=== PATIENT | female | born 1960 | race Caucasian/White ===

== ENCOUNTER 2019-03-22 15:56 | Emergency (ER) | payer MEDICARE ==
[2019-03-22] MEDS ORDERED: ASPIRIN 325 MG TABLET ONE (16:05)
[2019-03-22 16:35] LABS: BASOPHILS % (AUTO) 0.8 % (0.0-5.0); EOSINOPHILS % (AUTO) 0.4 % (0.0-8.0); HEMATOCRIT 43.8 % (36-48); LYMPHOCYTES % (AUTO) 12.7 % (21.0-51.0); MEAN CORPUSCULAR HEMOGLOBIN 30.8 pg (27.0-33.0); MEAN CORPUSCULAR HGB CONC 34.1 g/dL (32.0-36.0); MEAN CORPUSCULAR VOLUME 90.1 fL (79-99); MONOCYTES % (AUTO) 4.6 % (3.0-13.0); NEUTROPHILS % (AUTO) 81.5 % (40.0-77.0); PLATELET COUNT (AUTO) 198 K/uL (130-400); RED BLOOD CELL COUNT(AUTO) 4.86 MIL/uL (4.00-5.50); RED CELL DISTRIBUTION WIDTH 13.9 % (11.0-15.5)
[2019-03-22 16:44] LABS: CREATININE 0.8 mg/dL (0.5-1.5); POTASSIUM 3.3 mmol/L (3.5-5.1)
[2019-03-22 16:46] LABS: INR 0.94 (0.85-1.15); PROTHROMBIN TIME 9.9 SEC (9.6-11.6)
[2019-03-22 16:48] LABS: ALBUMIN 3.2 g/dL (3.5-5.0); BILIRUBIN,TOTAL 0.8 mg/dL (0.2-1.0); TOTAL PROTEIN, SERUM 7.5 g/dL (6.0-8.3)
[2019-03-22] MEDS ORDERED: ONDANSETRON HCL 4 MG/2 ML VIAL ONE ×2 (17:04→22:07)
[2019-03-22] MEDS ORDERED: KETOROLAC TROMETHAMINE 30MG/ML ONE (17:05)
[2019-03-22] MEDS ORDERED: SODIUM CHLORIDE 0.9% 1000ML 1,000 ML IV ONE ×2 (17:06→22:08)
[2019-03-22] MEDS ORDERED: FAMOTIDINE/PF 20 MG/2 ML VIAL IV ONE (17:06)
[2019-03-22] MEDS ORDERED: ZOSYN 3.375GM+NS 50ML 50 ML IV ONE (18:11)
[2019-03-22] MEDS ORDERED: FENTANYL CITRATE PF 50 MCG/1 ML 2ML VIAL ONE ×2 (19:38→22:07)
[2019-03-23] MEDS ORDERED: ZOSYN 3.375GM+NS 50ML 50 ML IV ONE (00:40)
== END 2019-03-23 01:54 | disposition short-term general hospital (02) ==
LOC: EDH 15:56
DX: K81.0 Acute cholecystitis (principal); E11.9 Type 2 diabetes mellitus without complications; J44.9 Chronic obstructive pulmonary disease, unspecified; I10 Essential (primary) hypertension; E78.00 Pure hypercholesterolemia, unspecified; Z72.0 Tobacco use; Z88.5 Allergy status to narcotic agent; Z91.013 Allergy to seafood
CPT/HCPCS: 36415; 71045; 76705; 80053; 82550; 83605; 83690; 84484; 85025; 85610; 85730; 87040; 93005; 96361; 96365; 96375 ×2; 96376; 99285; J1885; J2405 ×2; J2543 ×2; J3010 ×2; J3490; J7030 ×2